=== PATIENT | male | born 1960 | race Caucasian/White ===

== ENCOUNTER 2016-11-22 16:25 | Emergency (ER) | payer MEDICARE ==
[2016-11-22 16:25] VITALS: BMI 29.0
[2016-11-22 16:35] VITALS: BP 107/66; PULSE 76; RESP 20; TEMP 99; O2SAT 98
--- NOTE | 2016-11-22 18:31 | ED PDOC ---
HPI: Back Time Seen by Provider: 11/22/16 16:44 Chief Complaint (Nursing): Back Pain Chief Complaint (Provider): Back Pain History Per: Patient History/Exam Limitations: no limitations Onset/Duration Of Symptoms: Days (7 days) Current Symptoms Are (Timing): Still Present Quality Of Discomfort: Sharp Previous Symptoms: Chronic Pain (Chronic lower back pain from herniated disc.) Additional Complaint(s): Mil Tran Jr, a 56 year old male, who has a PMHx of chronic lower back pain due to a herniated disc presents to the ED complaining of back pain. The patient states that on Thursday while trying to lift an air condition he felt a sharp pain in his left lower back. He states that the pain has been constant ever since. The patient state that he took percocet which offered him relief but he ran out. Patient states that the pain is worse with movement. Denies numbness, weakness, urinary or bowel incontinence or retention,fever, weight loss, hematuria and dysuria. PMD: Dr. Bains Past Medical History Vital Signs: Last Vital Signs Temp 99 F 11/22/16 16:31 Pulse 76 11/22/16 16:31 Resp 20 11/22/16 16:31 BP 107/66 11/22/16 16:31 Pulse Ox 98 11/22/16 16:31 - Medical History PMH: Arthritis, Back Problems ('bad discs', herniated discs (pinched nerve)), Diabetes (type II), HTN, Hypercholesterolemia Denies: Chronic Kidney Disease - Surgical History Surgical History: Hernia Repair (inguinal, in childhood) - Family History Family History: States: Unknown Family Hx - Immunization History Hx Tetanus Toxoid Vaccination: No Hx Influenza Vaccination: No Hx Pneumococcal Vaccination: No - Home Medications Home Medications: Ambulatory Orders Medication Instructions Recorded Fenofibrate 160 mg PO DAILY 06/27/13 Lisinopril 40 mg PO DAILY 06/27/13 Metformin Hydrochloride [Metformin] 500 mg PO BID 06/27/13 Metoprolol Succinate 100 mg PO BID 06/27/13 Esomeprazole Magnesium [Nexium] 40 mg PO DAILY 08/29/13 Atorvastatin [Lipitor] 20 mg PO DAILY 11/02/14 Eye Drop Med 1 drop OU BID 11/02/14 Oxycodone HCl/Acetaminophen 1 tab PO BID PRN 11/02/14 [Endocet 325 mg-10 mg] Fish Oil 1 cap PO DAILY 03/07/15 Cephalexin [cephalexin] 500 mg PO QID 03/30/15 Methocarbamol [Robaxin] 500 mg PO Q4 PRN 03/30/15 Oxycodone HCl/Acetaminophen 1 mg PO Q4 PRN 03/30/15 [Percocet 325 mg-5 mg] Oxycodone HCl/Acetaminophen 1 tab PO Q6H PRN #15 tab 05/14/15 [Percocet 325 mg-5 mg] diaZEpam [Valium] 5 mg PO Q6H PRN #15 tab 05/14/15 Amoxicillin/Potassium Clav 1 tab PO BID #20 tablet 12/22/15 [Augmentin 875-125 Tablet] Oxycodone HCl/Acetaminophen 1 tab PO Q6H PRN #15 tab 12/22/15 [Percocet 325 mg-5 mg] - Allergies Allergies/Adverse Reactions: Allergies Allergy/AdvReac Type Severity Reaction Status Date / Time No Known Allergies Allergy Verified 11/22/16 16:30 - ECG O2 Sat by Pulse Oximetry: 98
--- NOTE | 2016-11-22 18:42 | CT ---
EXAM: CT Lumbar Spine Without Intravenous Contrast CLINICAL HISTORY: 56 years old, male; Pain; Low back pain; Additional info: Severe lbp TECHNIQUE: Axial computed tomography images of the lumbar spine without intravenous contrast. This CT exam was performed using one or more of the following dose reduction techniques: automated exposure control, adjustment of the mA and/or kV according to patient size, and/or use of iterative reconstruction technique. Coronal and sagittal reformatted images were created and reviewed. EXAM DATE/TIME: 11/22/2016 5:29 PM COMPARISON: There are no prior studies for comparison. FINDINGS: Vertebrae: T12 and the 5 lumbar vertebral bodies are normal in height. There are no fractures. There are no alignment abnormalities. There degenerative changes with osteophytes at all levels. There is sclerosis at the left sacroiliac joint. Disc spaces T10-11 to L3/L4 are unremarkable. There is degenerative disc disease L4/L5 with vacuum phenomenon and posterior disc bulging. There is mild posterior disc bulging at L5/S1. There is mild posterior L5-S1 disc space narrowing. The facet joints align anatomically. There is mild L5-S1 facet joint narrowing. Mineralization is normal. Discs/spinal canal/neural foramina: See above Soft tissues: Psoas and paraspinous muscles are symmetric. Vasculature: Splenic vascular calcification Retroperitoneal space: No acute abnormalities are seen retroperitoneum. IMPRESSION: Degenerative change L4-5 and L5-S1 with disc bulging greatest at L4-5; no fracture
--- NOTE | 2016-11-22 19:15 | ED PDOC ---
HPI: Back Time Seen by Provider: 11/22/16 16:44 Chief Complaint (Nursing): Back Pain Chief Complaint (Provider): Back Pain History Per: Patient History/Exam Limitations: no limitations Onset/Duration Of Symptoms: Days (7 days.) Current Symptoms Are (Timing): Still Present Previous Symptoms: Chronic Pain (Chronic lower back pain due to a herniated disc.) Exacerbating Factor(s): Movement Additional Complaint(s): Mil Vazquez Jr, a 56 year old male, who has a PMHx of chronic lower back pain due to a herniated disc presents to the ED complaining of back pain. The patient states that on Thursday while trying to lift an air condition he felt a sharp pain in his left lower back. He states that the pain has been constant ever since. The patient state that he took percocet which offered him relief but he ran out. Patient states that the pain is worse with movement. Denies numbness, weakness, urinary or bowel incontinence or retention,fever, weight loss, hematuria and dysuria. Past Medical History Reviewed: Historical Data, Nursing Documentation, Vital Signs Vital Signs: Last Vital Signs Temp 99 F 11/22/16 16:31 Pulse 76 11/22/16 16:31 Resp 20 11/22/16 16:31 BP 107/66 11/22/16 16:31 Pulse Ox 98 11/22/16 16:31 - Medical History PMH: Arthritis, Back Problems ('bad discs', herniated discs (pinched nerve)), Diabetes (type II), HTN, Hypercholesterolemia Denies: Chronic Kidney Disease Other PMH: Chronic lower back pain; Herniated Disc. - Surgical History Surgical History: Hernia Repair (inguinal, in childhood) Other surgeries: Left rotator cuff - Family History Family History: States: Unknown Family Hx - Social History Current smoker - smoking cessation education provided: Yes Alcohol: Occasional Drugs: Denies - Immunization History Hx Tetanus Toxoid Vaccination: No Hx Influenza Vaccination: No Hx Pneumococcal Vaccination: No - Home Medications Home Medications: Ambulatory Orders Medication Instructions Recorded Fenofibrate 160 mg PO DAILY 06/27/13 Lisinopril 40 mg PO DAILY 06/27/13 Metformin Hydrochloride [Metformin] 500 mg PO BID 06/27/13 Metoprolol Succinate 100 mg PO BID 06/27/13 Esomeprazole Magnesium [Nexium] 40 mg PO DAILY 03/10/14 Atorvastatin [Lipitor] 20 mg PO DAILY 11/02/14 Eye Drop Med 1 drop OU BID 11/02/14 Oxycodone HCl/Acetaminophen 1 tab PO BID PRN 11/02/14 [Endocet 325 mg-10 mg] Fish Oil 1 cap PO DAILY 03/07/15 Cephalexin [cephalexin] 500 mg PO QID 03/30/15 Methocarbamol [Robaxin] 500 mg PO Q4 PRN 03/30/15 Oxycodone HCl/Acetaminophen 1 mg PO Q4 PRN 03/30/15 [Percocet 325 mg-5 mg] Oxycodone HCl/Acetaminophen 1 tab PO Q6H PRN #15 tab 05/14/15 [Percocet 325 mg-5 mg] diaZEpam [Valium] 5 mg PO Q6H PRN #15 tab 05/14/15 Amoxicillin/Potassium Clav 1 tab PO BID #20 tablet 12/22/15 [Augmentin 875-125 Tablet] Oxycodone HCl/Acetaminophen 1 tab PO Q6H PRN #15 tab 12/22/15 [Percocet 325 mg-5 mg] Cyclobenzaprine [Flexeril] 5 mg PO Q8 PRN #10 tab 11/22/16 Ibuprofen [Motrin Tab] 600 mg PO Q8 PRN #60 tab 11/22/16 Lidocaine 5% [Lidoderm] 1 ea TD DAILY PRN #20 patch 11/22/16 - Allergies Allergies/Adverse Reactions: Allergies Allergy/AdvReac Type Severity Reaction Status Date / Time No Known Allergies Allergy Verified 11/22/16 16:30 Review of Systems ROS Statement: Except As Marked, All Systems Reviewed And Found Negative Constitutional: Negative for: Weakness, Weight loss Genitourinary Male: Negative for: Dysuria, Incontinence (Denies urinary and bowel incontinence or rentention.), Hematuria Musculoskeletal: Positive for: Back Pain Neurological: Negative for: Weakness, Numbness Physical Exam - Reviewed Nursing Documentation Reviewed: Yes Vital Signs Reviewed: Yes - Physical Exam Appears: Positive for: Non-toxic. Negative for: In Acute Distress (In moderate distress.) Head Exam: Positive for: ATRAUMATIC, NORMOCEPHALIC Skin: Positive for: Normal Color, Warm, Dry. Negative for: Pallor Eye Exam: Positive for: Normal appearance Neck: Positive for: Normal, Painless ROM, Supple Gastrointestinal/Abdominal: Positive for: Normal Exam, Bowel Sounds, Soft. Negative for: Tenderness, Mass, Distended, Guarding, Rebound Back: Positive for: Normal Inspection, Vertebral Tenderness (Tenderness to palpation at left lumbar paraspinal area.), Muscle Spasm, Other (No step off, No crepitus to back area;No midline tenderness.) Extremity: Positive for: Normal ROM, Tenderness, Other (Negative straight leg raise bilaterally; 5/5 strength in bilteral lower extremities.). Negative for: Deformity, Swelling Neurologic/Psych: Positive for: Alert, Oriented. Negative for: Motor/Sensory Deficits - ECG O2 Sat by Pulse Oximetry: 98 (RA) Pulse Ox Interpretation: Normal Medical Decision Making Medical Decision Makin:44 Initial Impression: 56 year old male presenting with back pain acute on chronic Initial Plan: * CT lumbar spine w/o * Contrast * Flexeril 10mg PO * Motrin tab 600mg PO Reviewed patient's narcotic prescription on CT online database, patient received 120 tablets of 10/325mg endocet once per month, last rx October 27 and is supposed to last for 30 days. At this time treat acute pain in ER but no narcotic prescriptions will be given. Accession No. : [id number] Patient Name / ID : TAYLOR MIL / [id number] Exam Date : 11/22/2016 18:13:05 ( Approved ) Study Comment : Sex / Age : M / [id number] Creator : CECI PERALTA Dictator : Storage Consultant : Mixologist : CECI PERALTA Approver2 : Report Date : 11/22/2016 18:42:00 My Comment : [facility] Division of Radiology [address] [place] [address] Tel. no. Patient Name: MIL VAZQUEZ JR Pt. Address: [facility] [address] Rec #: [id number] [place] [address]: John OLIVARES, Tanesha Renteria Pt Order Location: [facility] : 1960 Male Age: 56 Order #: [id number] Reason for exam: severe LBP CT Scan LUMBAR SPINE W/O CONTRAST Exam Date: 11/22/16 This imaging exam was performed at [facility] EXAM: CT Lumbar Spine Without Intravenous Contrast CLINICAL HISTORY: 56 years old, male; Pain; Low back pain; Additional info: Severe lbp TECHNIQUE: Axial computed tomography images of the lumbar spine without intravenous contrast. This CT exam was performed using one or more of the following dose reduction techniques: automated exposure control, adjustment of the mA and/or kV according to patient size, and/or use of iterative reconstruction technique. Coronal and sagittal reformatted images were created and reviewed. EXAM DATE/TIME: 11/22/2016 5:29 PM COMPARISON: There are no prior studies for comparison. FINDINGS: Vertebrae: T12 and the 5 lumbar vertebral bodies are normal in height. There are no fractures. There are no alignment abnormalities. There degenerative changes with osteophytes at all levels. There is sclerosis at the left sacroiliac joint. Disc spaces T10-11 to L3/L4 are unremarkable. There is degenerative disc disease L4/L5 with vacuum phenomenon and posterior disc bulging. There is mild posterior disc bulging at L5/S1. There is mild posterior L5-S1 disc space narrowing. The facet joints align anatomically. There is mild L5-S1 facet joint narrowing. Mineralization is normal. Discs/spinal canal/neural foramina: See above Soft tissues: Psoas and paraspinous muscles are symmetric. Vasculature: Splenic vascular calcification Retroperitoneal space: No acute abnormalities are seen retroperitoneum. IMPRESSION: Degenerative change L4-5 and L5-S1 with disc bulging greatest at L4-5; no fracture Dictated By: Ceci Peralta MD, MD Dictated Date/Time: 11/22/161841 Signed By: Ceci Peralta MD Date Signed: 1841 Transcribed By: JENNIFER Transcribe Date/Time : 11/22/161841 [id number] Scribe Attestation Documented by Lia Mcghee acting as a scribe for Tanesha Lopez MD. Scribe Attestation All medical record entries made by the Scribe were at my direction and personally dictated by me. I have reviewed the chart and agree that the record accurately reflects my personal performance of the history, physical exam, medical decision making, and the department course for this patient. I have also personally directed, reviewed, and agree with the discharge instructions and disposition. Disposition - Clinical Impression Clinical Impression: Back pain Counseled Patient/Family Regarding: Studies Performed, Diagnosis, Need For Followup, Rx Given - Disposition Referrals: Richard Miranda MD [Staff Provider] - Disposition: Routine/Home Disposition Time: 19:30 Condition: IMPROVED Additional Instructions: YOU NEED TO FOLLOW UP WITH DR MIRANDA FOR PAIN MEDICATIONS AND FURTHER MANAGEMENT CONSIDER PHYSICAL THERAPY WELL Prescriptions: Cyclobenzaprine [Flexeril] 5 mg PO Q8 PRN #10 tab PRN Reason: muscle spasm Ibuprofen [Motrin Tab] 600 mg PO Q8 PRN #60 tab PRN Reason: Pain, Moderate (4-7) Lidocaine 5% [Lidoderm] 1 ea TD DAILY PRN #20 patch PRN Reason: PAIN Instructions: Chronic Back Pain (ED), Narcotic Pain Management (ED)
== END 2016-11-22 20:35 | disposition home or self-care (01) ==
LOC: H.ER 16:25
DX: M54.5 Low back pain (principal); E11.9 Type 2 diabetes mellitus without complications; E78.00 Pure hypercholesterolemia, unspecified; F17.200 Nicotine dependence, unspecified, uncomplicated; I10 Essential (primary) hypertension; Z79.84 Long term (current) use of oral hypoglycemic drugs
CPT/HCPCS: 72131; 96372; 99283; J2270

== ENCOUNTER 2018-03-26 08:19 | Day surgery (SDC) | payer MEDICARE ==
[2018-03-26] MEDS ORDERED: Lactated Ringer's 500 ML IV ONE (08:43)
[2018-03-26 08:47] VITALS: BMI 29.7
[2018-03-26 09:07] VITALS: O2SAT 96
[2018-03-26] MEDS ORDERED: Propofol 10 mg/ml Inj (20 ML) ONE (10:41)
[2018-03-26 11:18] VITALS: RESP 20; TEMP 97
[2018-03-26 11:20] VITALS: BP 109/63; PULSE 81
== END 2018-03-26 14:41 | disposition home or self-care (01) ==
LOC: H.ENDO 08:19
PROVIDERS: ATTEND Internal Medicine Gastroenterology
DX: K22.8 Other specified diseases of esophagus (principal); K44.9 Diaphragmatic hernia without obstruction or gangrene; K29.70 Gastritis, unspecified, without bleeding; R12 Heartburn; E11.9 Type 2 diabetes mellitus without complications; E78.5 Hyperlipidemia, unspecified; I10 Essential (primary) hypertension; F17.210 Nicotine dependence, cigarettes, uncomplicated
CPT/HCPCS: 43239; 82948; 88305; J2001; J2704; J7120